=== PATIENT | male | born 1950 | race Caucasian/White ===

== ENCOUNTER 2018-05-07 10:20 | Emergency (ER) | payer MEDICAID, MEDICARE ==
[2018-05-07 11:07] VITALS: RESP 18; TEMP 98.9
[2018-05-07] MEDS ORDERED: TDAP Vaccine 0.5 mL Syr IM ONE (11:35)
[2018-05-07] MEDS ORDERED: Oxycodone/Acetaminophen 5/325 mg Tab PO STA (11:36)
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
[2018-05-07 13:44] VITALS: BP 150/64; PULSE 74; O2SAT 100
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
== END 2018-05-07 13:42 | disposition home or self-care (01) ==
LOC: ED 10:20
DX: S09.90XA Unspecified injury of head, initial encounter (principal); S52.502A Unspecified fracture of the lower end of left radius, initial encounter for closed fracture; Y08.89XA Assault by other specified means, initial encounter; Z23 Encounter for immunization